=== PATIENT | female | born 1950 | race Caucasian/White ===

== ENCOUNTER 2024-06-13 16:06 | Emergency (ER) | payer MEDICARE, SELFPAY ==
[2024-06-13 16:07] VITALS: BP 147/90; PULSE 121; RESP 19; TEMP 35.9; O2SAT 94
[2024-06-13 16:09] VITALS: BMI 29.1
--- NOTE | 2024-06-13 16:21 | VDLE_ITS ---
Reason For Study Reason For Study: LLE Pain Procedure LEFT This is a venous duplex using B-mode, color flow and GSV is normal. spectral Doppler. CFV is compressible, spontaneous, phasic, competent, Exam performed portable in ED. and demonstrates normal augmentation. The exam was diagnostic. FV is compressible, spontaneous, phasic, competent The study was technically difficult. and demonstrates normal augmentation. A preliminary report was called and/or faxed to [facility] V is compressible, spontaneous, phasic, competent Juany SWARTZ and demonstrates normal augmentation. T/P Trunk is compressible. PTV is compressible. LT PerV is compressible. VL/Venous Duplex US, Unilateral Interpretation Summary Deep veins of the left lower extremity are patent and compressible segmentally. There is no evidence of left lower extremity deep vein thrombosis. Valvular competence appears intact within the p roximal deep venous system on the left . The left great saphenous vein appears patent and compressible segmentally. Ordering Physician: Juany Proctor Referring Physician: N/A Performed By: Vamsi Andres RVT
--- NOTE | 2024-06-13 16:22 | EX.ED.DYSGE1 ---
HPI <ELBA Amin - Last Filed: 06/13/24 20:11> History of Present Illness Chief Complaint: Lower Extremity Injury Narrative Narrative: Patient presenting today after seeing [place] [facility] today for a left patellar and left elbow fracture after having a mechanical fall on Sunday. She had pain to palpation behind the left knee on exam, because of this, they recommended she come to the emergency department to rule out DVT. She denies any history of blood clots or recent surgery/travel. She denies any chest pain or shortness of breath. She is able to ambulate despite her patella fracture. PFSH <ELBA Amin - Last Filed: 06/13/24 20:11> PFSH Medical History no medical history Allergy/AdvReac Type Severity Reaction Status Date / Time codeine Allergy Severe Anaphylaxis Verified 06/13/24 16:10 ibuprofen Allergy Severe Anaphylaxis Verified 06/13/24 16:10 Penicillins (PCN) Allergy Severe Anaphylaxis Verified 06/13/24 16:10 Family History no significant family his Surgical History no surgical history Social History Smoking Status: Current every day smoker tobacco type: e-cigarettes ROS <ELBA Amin - Last Filed: 06/13/24 20:11> ROS ED Constitutional Constitutional ED: Denies chills or fever(s) Cardiovascular Cardiovascular: Denies chest pain Respiratory/Chest Respiratory/Chest: Denies dyspnea Musculoskeletal Musculoskeletal: Reports arthralgias Integumentary Denies rash Neurologic Neurologic: Denies paresthesias EXAM <ELBA Amin Last Filed: 06/13/24 20:11> Physical Exam Const Vital Signs: 06/13/24 16:07 06/13/24 17:18 06/13/24 17:41 Temperature 96.7 F L 98.6 F 98.6 F Temperature Source Temporal Oral Pulse Rate 121 H 101 H 101 H Respiratory Rate 19 H 16 16 Blood Pressure 147/90 H 148/93 H 148/93 H Blood Pressure Mean 109 111 111 Pulse Ox 94 96 96 Oxygen Delivery Method Room Air Positive well nourished, well developed and no apparent distress General Appearance ED: well developed HEENT Reports normocephalic and head/scalp atraumatic Mouth ED: Yes moist mucous membranes normal Eyes PERRL and EOMs intact bilaterally Neck full ROM and supple Chest Wall inspection of chest normal Resp normal respiratory effort and clear to auscultation bilaterally Cardio regular rate and regular rhythm Back/Spine normal ROM and normal to inspection Extremity normal to inspection and full ROM Extremity Narrative: No lower extremity edema bilaterally, negative Homans' sign on the left, no palpable cord, no erythema or warmth to the leg. No signs of infection. Left DP pulse 2+, good cap refill, sensation intact. Pain to palpation to the left patella and behind the left knee. Neuro moves all extremities, no focal motor deficits and no sensory deficits noted Sensorium / Orientation: awake and alert Psych mental status grossly normal and thought process normal Skin no rashes or lesions noted and no wounds <Dr. Josr Cardenas DO - Last Filed: 06/13/24 18:17> Physical Exam Const Vital Signs: 06/13/24 16:07 06/13/24 17:18 06/13/24 17:41 Temperature 96.7 F L 98.6 F 98.6 F Temperature Source Temporal Oral Pulse Rate 121 H 101 H 101 H Respiratory Rate 19 H 16 16 Blood Pressure 147/90 H 148/93 H 148/93 H Blood Pressure Mean 109 111 111 Pulse Ox 94 96 96 Oxygen Delivery Method Room Air MDM <ELBA Amin - Last Filed: 06/13/24 20:11> [facility] Narrative Medical decision making narrative: Patient was presenting today after being sent over from [place] [facility] for a venous duplex ultrasound of her left lower extremity to rule out DVT. She is unsure who she saw. She has a left patella and elbow fracture after mechanical fall on Sunday. She had pain to palpation behind her left knee on exam which concerned them for DVT. On exam she has a negative Homans' sign, no lower extremity edema, erythema, or warmth. Clinically low suspicion for DVT, venous duplex ultrasound obtained and is negative. Initially she was tachycardic but her heart rate did improve. She will be discharged home in stable condition, RICE instructions discussed, recommended following up with orthopedics. I have personally performed a face to face assessment of the patient and have reviewed the VADIM Note. I performed a substantive portion of the visit including all aspects of the following. My cedeno findings include: History is 74-year-old female presenting to the emergency room for concern for possible DVT of the left leg. Patient was sent from [facility] for ultrasound. Patient had a recent fall on Sunday with left patellar fracture. Exam is afebrile slightly tachycardic but regular no significant shortness of breath or hypoxia. No significant leg swelling compared to the right. Negative Homans' sign. Medical Decison Making duplex ultrasound is negative. <Dr. Josr Cardenas, DO - Last Filed: 06/13/24 18:17> [facility] Narrative Medical decision making narrative: Patient was presenting today after being sent over from [facility] for a venous duplex ultrasound of her left lower extremity to rule out DVT. She is unsure who she saw. She has a left patella and elbow fracture after mechanical fall on Sunday. She had pain to palpation behind her left knee on exam which concerned them for DVT. On exam she has a negative Homans' sign, no lower extremity edema, erythema, or warmth. Clinically low suspicion for DVT, and venous duplex ultrasound obtained and is negative. I have personally performed a face to face assessment of the patient and have reviewed the VADIM Note. I performed a substantive portion of the visit including all aspects of the following. My cedeno findings include: History is 74-year-old female presenting to the emergency room for concern for possible DVT of the left leg. Patient was sent from [facility] for ultrasound. Patient had a recent fall on Sunday with left patellar fracture. Exam is afebrile slightly tachycardic but regular no significant shortness of breath or hypoxia. No significant leg swelling compared to the right. Negative Homans' sign. Medical Decison Making duplex ultrasound is negative. History & Record Review Discussion w/independent historian: Patient Discharge Plan Triage Chief Complaint: Lower Extremity Injury ED Midlevel Provider: Juany Proctor ED Provider: Josr Cardenas Dx/Rx/DC Orders Clinical Impression: Pain in right knee, Right patella fracture Instructions: ED Patella Fracture Primary Care Provider: Care Physician,No Primary Referrals: Town Doctor,Out of [Non-Staff] - Activity Restrictions/Additional Instructions: Follow-up with orthopedics, return for any other concerns. Print Language: Belarusian Disposition Disposition: Home, Self Care Discharge Date/Time: 06/13/24 17:41
[2024-06-13 17:18] VITALS: BP 148/93; PULSE 101; RESP 16; TEMP 37; O2SAT 96
[2024-06-13 17:41] VITALS: BP 148/93; PULSE 101; RESP 16; TEMP 37; O2SAT 96
== END 2024-06-13 17:41 | disposition home or self-care (01) ==
PROVIDERS: Emergency Provider Emergency Medicine; Visit Provider Emergency Medicine
DX: S82.002A Unspecified fracture of left patella, initial encounter for closed fracture (principal); W18.30XA Fall on same level, unspecified, initial encounter; F17.290 Nicotine dependence, other tobacco product, uncomplicated
CPT/HCPCS: 93971; 99282